=== PATIENT | female | born 1980 | race Caucasian/White ===

== ENCOUNTER 2017-06-23 15:29 | Outpatient (CLI) | payer OTHER ==
--- NOTE | 2017-06-23 16:52 | Non Stress Test Report ---
Non Stress Test Datetime Report Generated by CPN: 06/23/2017 16:51 DEMOGRAPHIC EGA NST: 36.4 INDICATION Indication for Study: Diabetes Mellitus; Ordered by Provider MONITORING Time on Monitor: 06/23/2017 15:43 Time off Monitor: 06/23/2017 16:46 NST Duration: 63 NST INTERVENTIONS NST Interventions: PO Hydration; Reposition Patient Physician Notified NST: Dr. Juan BABY A: [id number] BABY A Movement : Present Contraction Frequency : irregular FHR Baseline : 120 Accelerations : 15X15 Decelerations : None Variability : Moderate 6-25bpm NST Review: Meets Criteria for Reactive NST NST Review and Verified By : Yessica BOJORQUEZ NST Results: Reactive NST REPORT Report Trigger: Send Report
== END 2017-06-23 16:49 | disposition home or self-care (01) ==
LOC: LC 15:29
PROVIDERS: ATTEND Obstetrics & Gynecology
PROC: 4A1HXCZ Monitoring of Products of Conception, Cardiac Rate, External Approach (ICD-10-PCS; principal; 2017-06-23)
DX: O24.419 Gestational diabetes mellitus in pregnancy, unspecified control (principal); Z3A.36 36 weeks gestation of pregnancy
CPT/HCPCS: 59025

== ENCOUNTER 2017-07-17 06:45 | Inpatient (IN) | payer OTHER ==
[2017-07-17] MEDS ORDERED: RINGERS SOLUTION,LACTATED 1,000 ML IV PRN (07:00)
[2017-07-17] MEDS ORDERED: RINGERS SOLUTION,LACTATED 300 ML IV ONE (07:00)
[2017-07-17] MEDS ORDERED: VANCOMYCIN HCL 1,000 MG in DEXTROSE 5%-WATER 250 ML IV SCH (07:00)
[2017-07-17] MEDS ORDERED: OXYTOCIN/NORMAL SALINE 20 UNIT/1,000 ML RTUINJ IV PRN ×2 (07:00→19:05)
[2017-07-17 07:38] LABS: ABSOLUTE EOSINOPHILS # (AUTO) 0.1 10^3/uL (0.0-0.6); ABSOLUTE LYMPHOCYTES (AUTO) 1.7 10^3/uL (0.5-4.7); ABSOLUTE MONOCYTES (AUTO) 0.6 10^3/uL (0.1-1.4); ABSOLUTE NEUT (AUTO) 4.5 10^3/uL (1.7-8.2); BASOPHILS % (AUTO) 0.3 % (0-2); EOSINOPHILS % (AUTO) 1.3 % (0-6); HEMATOCRIT 33.2 % (36.0-47.0); HEMOGLOBIN 11.3 g/dL (12.0-15.5); LYMPHOCYTES % (AUTO) 24.5 % (13-45); MEAN CORPUSCULAR HGB CONC 33.9 g/dL (32.0-36.0); MEAN CORPUSCULAR VOLUME 83 fl (80-97); MONOCYTES % (AUTO) 8.7 % (3-13); PLATELET COUNT 178 10^3/uL (150-450); RED BLOOD COUNT 4.02 10^6/uL (3.72-5.28); RED CELL DISTRIBUTION WIDTH 16.9 % (11.5-14.0); SEGMENTED NEUTROPHILS % (AUTO) 65.2 % (42-78); TOTAL CELLS COUNTED % (AUTO) 100 %; WHITE BLOOD COUNT 6.9 10^3/uL (4.0-10.5)
[2017-07-17 08:01] LABS: URINE AMPHETAMINES SCREEN NEGATIVE; URINE BARBITURATES SCREEN NEGATIVE; URINE BENZODIAZEPINES SCREEN NEGATIVE; URINE COCAINE SCREEN NEGATIVE; URINE MARIJUANA (THC) SCREEN NEGATIVE; URINE METHADONE SCREEN NEGATIVE; URINE PHENCYCLIDINE SCREEN NEGATIVE
[2017-07-17] MEDS ORDERED: OXYTOCIN/NORMAL SALINE 20 UNIT/1,000 ML RTUINJ ONE (08:03)
[2017-07-17] MEDS ORDERED: VANCOMYCIN HCL INJ 1000 MG VIAL ONE (08:03)
[2017-07-17 08:10] LABS: APPEARANCE,URINE SLIGHTLY-CLOUDY; BILIRUBIN,URINE NEGATIVE (NEGATIVE); COLOR,URINE YELLOW; GLUCOSE, URINE NEGATIVE (NEGATIVE); KETONES,URINE NEGATIVE (NEGATIVE); LEUKOCYTE ESTERASE,URINE LARGE (NEGATIVE); NITRITE,URINE NEGATIVE (NEGATIVE); PROTEIN,URINE NEGATIVE (NEGATIVE); URINE SPECIFIC GRAVITY 1.011; UROBILINOGEN,URINE NEGATIVE mg/dL (<2.0)
--- NOTE | 2017-07-17 12:25 | Admission Physical ---
Datetime Report Generated by CPN: 07/17/2017 12:24 CURRENT ADMISSION Hx Assessment: The History has been Reviewed and is Current Indication for Induction: Post Dates; Maternal Diabetes Indication for Induction- Other: + GBS Admit Impression : Term, Intrauterine ; No Active Labor; Induction of Labor Admit Plan: Admit to Unit; Initiate Labor Induction Protocol ALLERGIES Medication Allergies: Yes Medication Allergies: Penicillins (07/17/2017); latex (07/17/2017) Latex: Latex Allergies OBSTETRICAL HISTORY EDC: 07/17/2017 00:00 : 4 Para: 2 Term: 2 : 0 SAB: 1 IAB: 0 Ectopic: 0 Livin Cesareans: 0 VBACs: 0 Multiple Births: 0 Gestational Diabetes: Yes Rh Sensitization: No Incompetent Cervix: No TRAVIS: No Infertility: No ART Treatment: No Uterine Anomaly: No IUGR: No Hx Previous C/S: No Macrosomia: No Hx Loss/Stillborn: No PIH: No Hx : No Placenta Previa/Abruption: No Depression/PP Depression: No PTL/PROM: No Post Hemorrhage: No Current Procedures: Ultrasound; NST Obstetrical History Comments: G1- 2011, 40.2 weeks, , Female, 8lbs 6oz, epidural, vacuum G2- 2016, 40.4 weeks, , Male, 9lbs 13oz, epidural, shoulder dystocia G3- SAB G4- current, GDM, GBS positive (Clinda Resistant) SEE RECORDS Alcohol: No Marijuana : No Cocaine: No Other Illicit Drugs: No Cigarettes: Never Smoker. 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 Heart Disease: No Hosp/Surgery: Yes Autoimmune Disorder: No Anesthetic Complications: No Kidney Disease: Yes Abnormal Pap Smear: Yes Neuro/Epilepsy: No Psychiatric Disorders: No Other Medical Diseases: No Hepatitis/Liver Disease: No Significant Family History: No Varicosities/Phlebitis: No Trauma/Violence : No Thyroid Dysfunction: No Medical History Comments: Frequent UTIs, bladder surgery, HPV INFECTIOUS HISTORY Gonorrhea: No Genital Herpes: No Chlamydia: No Tuberculosis: No Syphilis: No Hepatitis: No HIV/AIDS Exposure: No Rash or Viral Illness: No HPV: Yes Infectious History Comments: +HPV PHYSICAL EXAM General: Normal HEENT: Deferred Neurologic: Normal Thyroid: Normal Heart: Normal Lungs: Normal Breast: Deferred Back: Normal Abdomen: Normal Genitourinary Exam: Normal Extremities: Normal DTRs: Normal Pelvic Type: Adequate Physical Exam Comments: AMA GDM + GBS Hx shoulder dystocia FETUS A Monitoring: External US FHR- Baseline: 120 Variability: Moderate 6-25bpm Accelerations: 15X15 Decelerations: None Presentation: Vertex Admit Comment: Admitted to LD for IOL for post dates, Hx shoulder dystocia, but desires IOL, AMA GDM, + GBS, waiting to ROM when antibiotics have infused PLANS FOR LABOR AND DELIVERY Labor and Delivery: None Pain Management: Epidural Feeding Preference: Breast Benefit of Breast Feed Discussed: Yes Circumcision: N/A INFORMED CONSENT Assignment: Michaela Martinez MD Signature: with User ID: [email or web address] : with User ID: [email or web address]
--- NOTE | 2017-07-17 13:05 | L&D Progress Notes ---
PROGRESS NOTES Datetime Report Generated by CPN: 07/17/2017 13:05 PROGRESS NOTE Plan: Continue Present Management Informed Consent Obtained: Vaginal Delivery Vital Signs : Reviewed; Within Normal Limits Comment: VE 3/80/vtx/0, AROM clear fluid, irreg uc's Cat strip Anticipate EFW 8-5 FETUS A Monitoring: External US : 40.0 Presentation: Vertex SIGNATURE SIGNATURE: [id number];[id number];,[id number] SIGNATURE: ,[id number] SIGNATURE: [id number] Assignment: Michaela Martinez MD Signature: with User ID: [email or web address] : with User ID: [email or web address]
[2017-07-17] MEDS ORDERED: EPHEDRINE SULFATE INJ 50 MG/1 ML AMPULE ONE (14:06)
[2017-07-17] MEDS ORDERED: LIDOCAINE 1% INJ-PF (10 MG/ML) 30 ML SDV ONE (14:06)
[2017-07-17] MEDS ORDERED: MISOPROSTOL 0.2 MG TABLET ONE (14:06)
[2017-07-17] MEDS ORDERED: FENTANYL/BUPIVACAINE/NS/PF 300 MCG/150 ML RTUINJ EPI ONE (14:06)
[2017-07-17] MEDS ORDERED: BUPIVACAINE HCL 0.25 % INJ/PF (2.5 MG/1 ML) 30 ML VIAL ONE (14:06)
[2017-07-17] MEDS ORDERED: FENTANYL CITRATE INJ/PF 100 MCG/2 ML AMPUL ONE (14:49)
[2017-07-17] MEDS ORDERED: PROMETHAZINE HCL 25 MG SUPP.RECT PR PRN (19:05)
[2017-07-17] MEDS ORDERED: NA PHOS,M-B/NA PHOS,DI-BA (ADULT) 133 ML ENEMA PR PRN (19:05)
[2017-07-17] MEDS ORDERED: ZOLPIDEM TARTRATE 5 MG TABLET PO PRN (19:05)
[2017-07-17] MEDS ORDERED: ACETAMINOPHEN 650 MG SUPP.RECT PR PRN (19:05)
[2017-07-17] MEDS ORDERED: PSEUDOEPHEDRINE HCL 30 MG TABLET PO PRN (19:05)
[2017-07-17] MEDS ORDERED: DIPH/PERTUSS(ACELL)/TETANUS VAC/PF 0.5 ML SYR (>=10YO) IM PRN (19:05)
[2017-07-17] MEDS ORDERED: MEASLES,MUMPS&RUBELLA VACC/PF 0.5 ML VIAL SUBCUT PRN (19:05)
[2017-07-17] MEDS ORDERED: PROMETHAZINE HCL 25 MG TABLET PO PRN (19:05)
[2017-07-17] MEDS ORDERED: ACETAMINOPHEN WITH CODEINE #3 TABLET PO PRN ×2 (19:05)
[2017-07-17] MEDS ORDERED: GLYCERIN/WITCH HAZEL LEAF 1 EACH MED..PAD TP PRN (19:05)
[2017-07-17] MEDS ORDERED: PROMETHAZINE HCL INJ 25 MG/1 ML VIAL IV PRN (19:05)
[2017-07-17] MEDS ORDERED: BENZOCAINE/MENTHOL AEROSOL SPRAY 56 ML TOP PRN (19:05)
[2017-07-17] MEDS ORDERED: DIBUCAINE 1% OINTMENT 28 GM TP PRN (19:05)
[2017-07-17] MEDS ORDERED: MAGNESIUM HYDROXIDE SUSP 30 ML UDCUP PO PRN (19:05)
[2017-07-17] MEDS ORDERED: DIPHENHYDRAMINE HCL 25 MG CAPSULE PO PRN (19:05)
[2017-07-17] MEDS ORDERED: VANCOMYCIN HCL INJ 1000 MG VIAL IV SCH (20:00)
[2017-07-17] MEDS ORDERED: IBUPROFEN 800 MG TABLET ONE (20:28)
[2017-07-17] MEDS: FAMOTIDINE 20 MG TABLET PO SCH (22:55)
[2017-07-17] MEDS: IBUPROFEN 800 MG TABLET PO SCH (23:15)
[2017-07-18] MEDS: IBUPROFEN 800 MG TABLET PO SCH ×3 (05:28→22:11)
[2017-07-18 08:05] LABS: HEMATOCRIT 33.1 % (36.0-47.0); HEMOGLOBIN 11.1 g/dL (12.0-15.5); MEAN CORPUSCULAR HEMOGLOBIN 27.6 pg (27.0-33.4); MEAN CORPUSCULAR HGB CONC 33.6 g/dL (32.0-36.0); MEAN CORPUSCULAR VOLUME 82 fl (80-97); PLATELET COUNT 163 10^3/uL (150-450); RED BLOOD COUNT 4.03 10^6/uL (3.72-5.28); RED CELL DISTRIBUTION WIDTH 16.6 % (11.5-14.0); WHITE BLOOD COUNT 10.5 10^3/uL (4.0-10.5)
--- NOTE | 2017-07-18 09:09 | PDOC PROGRESS REPORT ---
Subjective-OB Progress Note for:: 07/18/17 Subjective: s/p day #1 Pt c/o headache, has resolved with tylenol and having breakfast, states lochia is stable, pain is well controlled, voiding without difficulty. Physical Exam (OB) Vital Signs: Temp Pulse Resp BP Pulse Ox 98.4 F 94 18 138/64 H 99 07/17/17 21:27 07/17/17 21:27 07/17/17 21:27 07/17/17 21:27 07/17/17 21:27 Intake & Output 07/17/17 07/18/17 07/19/17 06:59 06:59 06:59 Weight 80 kg - PIH/Pre-Eclampsia DTR's: 1 + Clonus: Negative Headache: Absent Epigastric Pain: No Visual Changes: No - Lochia Lochia Amount: Scant < 10 ml Lochia Color: Rubra/Red - Abdomen Description: Tender Hernia Present: No Fundal Description: Firm Fundal Height: u/u - u/2 Objective-Diagnostic Laboratory: 07/18/17 07:31 07/18/17 07:31 WBC 10.5 RBC 4.03 Hgb 11.1 L Hct 33.1 L MCV 82 MCH 27.6 MCHC 33.6 RDW 16.6 H Plt Count 163 Assessment and Plan(PN) - Assessment and Plan (1) GDM (gestational diabetes mellitus) Qualifiers: Gestational diabetes mellitus control: diet-controlled Trimester: third trimester Qualified Code(s): O24.410 - Gestational diabetes mellitus in , diet controlled Is this a current diagnosis for this admission?: Yes Plan: f/u pp (2) Delivery normal Is this a current diagnosis for this admission?: Yes Plan: routine pp care - Time Spent with Patient Time with patient: Less than 15 minutes Critical Time spent with patient: Less than 15 minutes Medications reviewed and adjusted accordingly: Yes - Disposition Anticipated Discharge: Home Within: within 24 hours
[2017-07-18] MEDS: ACETAMINOPHEN 325 MG TABLET PO PRN ×2 (09:24→17:48)
[2017-07-18] MEDS: FAMOTIDINE 20 MG TABLET PO SCH ×2 (09:26→22:11)
[2017-07-18] MEDS: SENNOSIDES/DOCUSATE 8.6-50 MG 1 EACH TABLET PO SCH (09:26)
[2017-07-18] MEDS: PRENATAL VITAMIN W DHA CAPSULE PO SCH (09:26)
[2017-07-18] MEDS: FERROUS SULFATE 325 MG TABLET PO SCH ×2 (09:26→17:39)
[2017-07-18] MEDS: DOCUSATE SODIUM 100 MG CAPSULE PO SCH ×2 (09:27→17:39)
[2017-07-18] MEDS ORDERED: FERROUS SULFATE 325 MG TABLET PO SCH (10:00)
[2017-07-18] MEDS ORDERED: [UNRECOGNIZED DRUG - REMARK] PO SCH (10:00)
[2017-07-18] MEDS ORDERED: CYCLOBENZAPRINE HCL 10 MG TABLET PO ONE (10:30)
[2017-07-19] MEDS: ACETAMINOPHEN 325 MG TABLET PO PRN ×2 (00:34→08:15)
[2017-07-19] MEDS: IBUPROFEN 800 MG TABLET PO SCH ×3 (05:33→22:08)
[2017-07-19] MEDS ORDERED: NORMAL SALINE 1000 ML 1,000 ML IV PRN (09:41)
--- NOTE | 2017-07-19 09:56 | PDOC PROGRESS REPORT ---
Subjective-OB Progress Note for:: 07/19/17 Subjective: s/p day #2 Pt still c/o headache, worse when up moving around, better when lying flat, denies other concerns, would like to be d/c if headache is better, lochia is stable, voiding without difficulty. Physical Exam (OB) Vital Signs: Temp Pulse Resp BP Pulse Ox 98.1 F 73 18 131/79 H 99 07/19/17 08:01 07/19/17 08:01 07/19/17 08:01 07/19/17 07:23 07/19/17 08:01 Intake & Output 07/18/17 07/19/17 07/20/17 06:59 06:59 06:59 Intake Total 1800 Balance 1800 Weight 80 kg - PIH/Pre-Eclampsia DTR's: 1 + Clonus: Negative Headache: Present Epigastric Pain: No Visual Changes: No - Lochia Lochia Amount: Scant < 10 ml Lochia Color: Rubra/Red - Abdomen Description: Tender Hernia Present: No Fundal Description: Firm Fundal Height: u/u - u/2 Objective-Diagnostic Laboratory: 07/18/17 07:31 Assessment and Plan(PN) - Assessment and Plan (1) GDM (gestational diabetes mellitus) Qualifiers: Gestational diabetes mellitus control: diet-controlled Trimester: third trimester Qualified Code(s): O24.410 - Gestational diabetes mellitus in , diet controlled Is this a current diagnosis for this admission?: Yes (2) Delivery normal Is this a current diagnosis for this admission?: Yes - Time Spent with Patient Medications reviewed and adjusted accordingly: Yes - Disposition Anticipated Discharge: Home
--- NOTE | 2017-07-19 10:00 | PDOC DISCHARGE SUMMARY ---
Final Diagnosis Discharge Date: 07/19/17 - Final Diagnosis (1) GDM (gestational diabetes mellitus) Is this a current diagnosis for this admission?: Yes (2) Delivery normal Is this a current diagnosis for this admission?: Yes (3) Headache Is this a current diagnosis for this admission?: Yes Discharge Data - Discharge Medication Home Medications: Pnv W-O Ca No5/Fe Fumarate/FA [-U Multiple Vitamin Capsule] 1 cap PO DAILY 01/13/12 Ferrous Sulfate [Iron] 325 mg PO DAILY 03/27/15 Gestational Age: 40 Reason(s) for Admission: Gestional Diabetes Procedures: NST Intrapartum Procedure(s): Spontaneous Vaginal Delivery - Diagnosis Test Laboratory: Temp Pulse Resp BP Pulse Ox 98.1 F 73 18 131/79 H 99 07/19/17 08:01 07/19/17 08:01 07/19/17 08:01 07/19/17 07:23 07/19/17 08:01 07/17/17 07/17/17 07/18/17 07:19 07:26 07:31 RBC 4.02 4.03 Hgb 11.3 L 11.1 L Hct 33.2 L 33.1 L Urine Opiates Screen NEGATIVE - Discharge information/Instructions Discharge Activity: Activity As Tolerated, Pelvic Rest, No tub bath Discharge Diet: Regular Disposition: HOME, SELF-CARE Follow up with: [facility] in: 1, Weeks
[2017-07-19] MEDS: DOCUSATE SODIUM 100 MG CAPSULE PO SCH ×2 (10:15→17:54)
[2017-07-19] MEDS: PRENATAL VITAMIN W DHA CAPSULE PO SCH (10:15)
[2017-07-19] MEDS: SENNOSIDES/DOCUSATE 8.6-50 MG 1 EACH TABLET PO SCH (10:15)
[2017-07-19] MEDS: FAMOTIDINE 20 MG TABLET PO SCH ×2 (10:15→22:08)
[2017-07-19] MEDS: FERROUS SULFATE 325 MG TABLET PO SCH ×2 (10:16→17:54)
[2017-07-19] MEDS: NORMAL SALINE 1000 ML 1,000 ML IV PRN ×2 (16:10→20:16)
[2017-07-19] MEDS ORDERED: NORMAL SALINE 1000 ML 1,000 ML IV ONE (16:15)
[2017-07-19] MEDS: BUTALB/ACETAMINOPHEN/CAFFEINE 1 TAB EACH PO PRN (18:41)
[2017-07-20] MEDS: BUTALB/ACETAMINOPHEN/CAFFEINE 1 TAB EACH PO PRN ×2 (00:10→04:09)
[2017-07-20] MEDS: NORMAL SALINE 1000 ML 1,000 ML IV PRN (02:31)
[2017-07-20] MEDS: IBUPROFEN 800 MG TABLET PO SCH ×3 (06:26→22:02)
[2017-07-20] MEDS ORDERED: ACETAMINOPHEN 325 MG TABLET PO ONE (09:00)
--- NOTE | 2017-07-20 09:17 | PDOC PROGRESS REPORT ---
Subjective-OB Progress Note for:: 07/20/17 Subjective: s/p day #3 still c/o headache, worse when standing up, is nauseated, voiding without difficulty, lochia is stable, pain well controlled. Physical Exam (OB) Vital Signs: Temp Pulse Resp BP Pulse Ox 98.4 F 72 16 108/69 100 07/20/17 07:53 07/20/17 07:53 07/20/17 07:53 07/20/17 07:53 07/20/17 07:53 Intake & Output 07/19/17 07/20/17 07/21/17 06:59 06:59 06:59 Intake Total 1800 4400 Balance 1800 4400 - PIH/Pre-Eclampsia DTR's: 2 + Clonus: Negative Headache: Present Epigastric Pain: No Visual Changes: No - Lochia Lochia Amount: Scant < 10 ml Lochia Color: Rubra/Red - Abdomen Description: Soft Hernia Present: No Fundal Description: Firm, Midline Fundal Height: u/u - u/2 Objective-Diagnostic Laboratory: 07/18/17 07:31 Assessment and Plan(PN) - Assessment and Plan (1) GDM (gestational diabetes mellitus) Qualifiers: Gestational diabetes mellitus control: diet-controlled Trimester: third trimester Qualified Code(s): O24.410 - Gestational diabetes mellitus in , diet controlled Is this a current diagnosis for this admission?: Yes Plan: f/u in office (2) Delivery normal Is this a current diagnosis for this admission?: Yes Plan: d/c home today if headache resolved (3) Headache Qualifiers: Headache type: unspecified Headache chronicity pattern: acute headache Intractability: not intractable Qualified Code(s): R51 - Headache Is this a current diagnosis for this admission?: Yes Plan: anesthesia to bedside to reeval prepared for blood patch - Time Spent with Patient Time with patient: Less than 15 minutes Critical Time spent with patient: Less than 15 minutes Medications reviewed and adjusted accordingly: Yes - Disposition Anticipated Discharge: Home Within: within 24 hours
--- NOTE | 2017-07-20 09:20 | Delivery Summary ---
Del Sum A-C Datetime Report Generated by CPN: 07/20/2017 09:19 DELIVERY PERSONNEL DELIVERY PERSONNEL: [id number] Delivery Doctor:: Michaela Martinez MD Labor and Delivery Nurse:: Natalya Hughes RN Labor and Delivery Nurse:: RENO Powell Nursery Nurse:: Rafia Bal RN Nursery Nurse:: Cas Kelly RN Additional Personnel: : Annmarie Dunham RNC MATERNAL INFORMATION Delivery Anesthesia: Epidural Medications After Delivery: Pitocin Bolus-Please Comment Meds After Delivery Comment: Pitocin 20 units in 1000 ml nss open for delivery Estimated Blood Loss (ml): 200 Maternal Complications: None Provider Comments: Kiwi applied x 2 PO to bring head down. Then continued to push and made successful progress. LABOR SUMMARY EDC: 07/17/2017 00:00 No. Babies in Womb: 1 Attempted: No Labor Anesthesia: None LABOR INFORMATION Reason for Induction: Maternal Diabetes; Other Reason for Induction- Other: AMA Onset of Labor: 07/17/2017 12:57 Complete Dilatation: 07/17/2017 17:01 Oxytocin: Induction Group B Beta Strep: Positive Antibiotics # of Doses: 1 Antibiotics Time of Last Dose: 826 Name of Antibiotic Given: Vancomycin Steroids Given: None Reason Steroids Not Administered: Not Applicable MEMBRANES Membranes Rupture Method: Artificial Rupture of Membranes: 07/17/2017 12:57 Length of Rupture (hr): 5.85 Amniotic Fluid Color: Clear Amniotic Fluid Amount: Moderate Amniotic Fluid Odor: Normal STAGES OF LABOR Stage 1 hr: 4 Stage 1 min: 4 Stage 2 hr: 1 Stage 2 min: 47 Stage 3 hr: 0 Stage 3 min: 4 Total Time in Labor hr: 5 Total Time in Labor min: 55 VAGINAL DELIVERY Episiotomy: None Laceration #1: None Laceration Extension #1: N/A Sharps Count Correct: N/A CSECTION DELIVERY Primary Indication: N/A Secondary Indication: N/A CSection Incidence: N/A Labor: N/A Elective: N/A CSection Incision: N/A BABY A INFORMATION Delivery Date/Time: 07/17/2017 18:48 Method of Delivery: Vaginal Born in Route : No : N/A Forceps: N/A Vacuum Extraction: N/A Shoulder Dystocia : No PRESENTATION/POSITION BABY A Presentation: Cephalic Cephalic Presentation: Vertex Vertex Position: Right Occipital Anterior Breech Presentation: N/A PLACENTA INFORMATION BABY A Placenta Delivery Time : 07/17/2017 18:52 Placenta Method of Delivery: Spontaneous Placenta Status: Delivered SCORES BABY A Heart Rate 1 min: >100 bpm Resp Effort 1 min: Good Cry Reflex Irritability 1 min: Cough or Sneeze or Pulls Away Muscle Tone 1 min: Active Motion Color 1 min: Body [place], Extremities Blue Resuscitation Effort 1 min: Tactile Stimulation SCORE 1 MIN: 9 Heart Rate 5 min: >100 bpm Resp Effort 5 min: Good Cry Reflex Irritability 5 min: Cough or Sneeze or Pulls Away Muscle Tone 5 min: Active Motion Color 5 min: Body [place], Extremities Blue Resuscitation Effort 5 min: N/A SCORE 5 MIN: 9 Resuscitation Effort 10 min: N/A INFORMATION BABY A Gestational Age at Delivery: 40.0 Gestational Status: Full Term- 39- 40.6 Weeks Outcome : Liveborn Infant Condition : Stable Sex: Female IDENTIFICATION BABY A Infant Verification Date/Time: 07/17/2017 19:00 ID Band Number: [id number] Mother's Name Verified: Yes Infant RN Verifying Infant: R Ayaan RN Additional Verifying Personnel: D Sproues CORD INFORMATION BABY A No. 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
[2017-07-20] MEDS ORDERED: PROCHLORPERAZINE MALEATE 10 MG TABLET PO PRN (10:00)
[2017-07-20] MEDS: FERROUS SULFATE 325 MG TABLET PO SCH ×2 (10:10→17:21)
[2017-07-20] MEDS: SENNOSIDES/DOCUSATE 8.6-50 MG 1 EACH TABLET PO SCH (10:11)
[2017-07-20] MEDS: DOCUSATE SODIUM 100 MG CAPSULE PO SCH ×2 (10:11→17:21)
[2017-07-20] MEDS: FAMOTIDINE 20 MG TABLET PO SCH ×2 (10:11→22:03)
[2017-07-20] MEDS: PRENATAL VITAMIN W DHA CAPSULE PO SCH (10:37)
[2017-07-20] MEDS: ACETAMINOPHEN 325 MG TABLET PO PRN ×2 (10:45→17:28)
[2017-07-20] MEDS ORDERED: CYCLOBENZAPRINE HCL 10 MG TABLET PO ONE (11:30)
[2017-07-21] MEDS: IBUPROFEN 800 MG TABLET PO SCH ×2 (06:47→13:21)
[2017-07-21] MEDS: FERROUS SULFATE 325 MG TABLET PO SCH (09:47)
[2017-07-21] MEDS: DOCUSATE SODIUM 100 MG CAPSULE PO SCH (09:47)
[2017-07-21] MEDS: PRENATAL VITAMIN W DHA CAPSULE PO SCH (09:47)
[2017-07-21] MEDS: SENNOSIDES/DOCUSATE 8.6-50 MG 1 EACH TABLET PO SCH (09:47)
[2017-07-21] MEDS: FAMOTIDINE 20 MG TABLET PO SCH (09:48)
[2017-07-21 10:27] VITALS: BP 122/75
--- NOTE | 2017-07-21 11:27 | PDOC DISCHARGE SUMMARY ---
Final Diagnosis Discharge Date: 07/21/17 Discharge Data - Discharge Medication Prescriptions: Butalb/Acetaminophen/Caffeine [Fioricet 50-300-40 mg Capsule] 1 cap PO Q4 PRN # 30 cap PRN Reason: Docusate Sodium [Colace 100 mg Capsule] 100 mg PO BID #60 capsule Ferrous Sulfate [Feosol 325 mg Tablet] 325 mg PO BID #60 tablet Ibuprofen [Motrin 800 mg Tablet] 800 mg PO Q8 #60 tablet Home Medications: Pnv W-O Ca No5/Fe Fumarate/FA [-U Multiple Vitamin Capsule] 1 cap PO DAILY 01/13/12 Butalb/Acetaminophen/Caffeine [Fioricet 50-300-40 mg Capsule] 1 cap PO Q4 PRN # 30 cap 07/19/17 Docusate Sodium [Colace 100 mg Capsule] 100 mg PO BID #60 capsule 07/19/17 Ferrous Sulfate [Feosol 325 mg Tablet] 325 mg PO BID #60 tablet 07/19/17 Ibuprofen [Motrin 800 mg Tablet] 800 mg PO Q8 #60 tablet 07/19/17 Reason(s) for Admission: Induction of Labor - GDM Procedures: NST, Ultrasound Intrapartum Procedure(s): Spontaneous Vaginal Delivery Complication(s): Spinal Headache - with blood patch - Diagnosis Test Laboratory: Temp Pulse Resp BP Pulse Ox 98.2 F 77 16 120/73 99 07/21/17 07:46 07/21/17 07:46 07/20/17 19:31 07/21/17 07:46 07/21/17 07:46 07/17/17 07/17/17 07/18/17 07:19 07:26 07:31 RBC 4.02 4.03 Hgb 11.3 L 11.1 L Hct 33.2 L 33.1 L Urine Opiates Screen NEGATIVE - Discharge information/Instructions Discharge Activity: Activity As Tolerated, Balance Activity w/Rest, No Lifting Over 10 Pounds, No Lifting/Push/Pulling, Pelvic Rest, No tub bath, Walk Frequently Discharge Diet: As Tolerated, Regular Disposition: HOME, SELF-CARE Follow up with: [facility] in: 4, Weeks
== END 2017-07-21 15:20 | disposition home or self-care (01) | DRG 774 ==
LOC: LR 06:45 → 2S 21:30
PROVIDERS: ADMIT Obstetrics & Gynecology; ATTEND Obstetrics & Gynecology
PROC: 10D07Z6 Extraction of Products of Conception, Vacuum, Via Natural or Artificial Opening (ICD-10-PCS; principal; 2017-07-17)
PROC: 4A1HXCZ Monitoring of Products of Conception, Cardiac Rate, External Approach (ICD-10-PCS; 2017-07-17)
PROC: 3E0S3GC Introduction of Other Therapeutic Substance into Epidural Space, Percutaneous Approach (ICD-10-PCS; 2017-07-21)
DX: O76 Abnormality in fetal heart rate and rhythm complicating labor and delivery (principal); O74.5 Spinal and epidural anesthesia-induced headache during labor and delivery; O48.0 Post-term pregnancy; O99.824 Streptococcus B carrier state complicating childbirth; O24.420 Gestational diabetes mellitus in childbirth, diet controlled; Z3A.40 40 weeks gestation of pregnancy; Z37.0 Single live birth
CPT/HCPCS: 36415; 59025; 62273; 80307; 81005; 85025; 85027; 86592; 86850; 86900; 86901; J2590; J3010; J3370; J3490; J7030